=== PATIENT | male | born 1975 | race Caucasian/White ===

== ENCOUNTER 2024-06-04 18:16 | Emergency (ER) | payer BC, SELFPAY ==
[2024-06-04 18:41] VITALS: BP 133/83; PULSE 61; RESP 16; TEMP 36.8; O2SAT 97
--- NOTE | 2024-06-04 18:50 | ED_ITS ---
HPI - URI/Sore Throat General Chief Complaint: Upper Respiratory Infection Stated Complaint: Sore Throat, cough Time Seen by Provider: 06/04/24 18:50 Source: patient Mode of arrival: ambulatory Limitations: no limitations History of Present Illness HPI Narrative: 48-year-old male presents with complaint of nasal congestion, sinus pressure and cough for the past 2 weeks. Over the past 3-4 days worsening of symptoms. Afebrile. Not taking any [id number]-[id number] medications to treat symptoms other than zinc. Patient reports voice is worse. No chest pain or shortness of breath. All systems reviewed and negative except as noted above. Related Data Allergies Allergy/AdvReac Type Severity Reaction Status Date / Time No Known Allergies Allergy Verified 06/04/24 18:44 Review of Systems Review of Systems: CONSTITUTIONAL: Denies fever, chills, or sweats. Reports fatigue. EYES: Denies visual changes, redness, or discharge. ENT: Reports rhinorrhea, congestion, sinus pressure, postnasal drainage, sore throat, bilateral ear pressure CARDIOVASCULAR: Denies chest pain, palpitations, or edema. RESPIRATORY: Reports cough. Denies dyspnea. GASTROINTESTINAL: Denies abdominal pain, nausea, vomiting, or diarrhea. GENITOURINARY: Denies dysuria or hematuria. SKIN: Denies rash or itching. MUSCULOSKELETAL: Denies back pain, joint pain, or myalgia. NEUROLOGIC: Denies headache, numbness, or weakness. PSYCHIATRIC: Denies anxiety or depression. All other systems reviewed are negative, except as documented in HPI. PMFSH Comments At time of signature, agree with nursing past medical, surgical, social and family history. There is no relevant family history pertinent to the presenting complaint. Exam Narrative: GENERAL: This is a well-nourished, well-developed patient, in no apparent distress. HEAD: normocephalic, atraumatic. EYES: PERRL. Sclera clear/white. Vision is grossly intact. EARS: External ears normal, auditory canals clear and without drainage, TMs normal without perforation. Hearing grossly intact. NOSE: External nose normal with congestion purulent nasal drainage, erythema and swelling to bilateral nares, maxillary sinus tenderness bilaterally. THROAT: Mucous membranes moist, erythema postnasal drainage. No swelling or exudates. NECK: Neck supple, non-tender without lymphadenopathy, masses or thyromegaly. CARDIOVASCULAR: Regular rate and rhythm without murmurs, gallops, or rubs. RESPIRATORY: Clear to auscultation. Breath sounds equal bilaterally. No wheezes, rales, or rhonchi. SKIN: warm, Dry, intact with no suspicious lesions or rash, good texture and turgor. NEURO: awake, alert, and oriented to person, place and time. There were no obvious focal neurologic abnormalities. EXTREMITIES: No joint tenderness, effusion, or edema noted. Course Course Level of Care: Express Care Visit Vital Signs Vital signs: Vital Signs Temperature 36.8 C 06/04/24 18:41 Pulse Rate 61 06/04/24 18:41 Respiratory Rate 16 06/04/24 18:41 Blood Pressure 133/83 06/04/24 18:41 Pulse Oximetry 97 06/04/24 18:41 Temperature 36.8 C 06/04/24 18:41 Pulse Rate 61 06/04/24 18:41 Respiratory Rate 16 06/04/24 18:41 Blood Pressure 133/83 06/04/24 18:41 Pulse Oximetry 97 06/04/24 18:41 Reviewed MDM - URI/Sore Throat MDM Narrative Medical decision making narrative: Will treat patient for bacterial sinusitis due to duration of symptoms and exam findings. Patient is alert, nontoxic. Hemodynamically stable. Please be advised this is a medical document. It is intended for [id number] communication. It is written in medical language and may contain unfamiliar abbreviations or verbiage. Medical documents are intended to carry relevant information, facts as evident, and the clinical opinion of the practitioner at the time of the encounter. This report may have been done utilizing a voice recognition system. Attempts have been made to correct errors. However, there may be uncorrected grammatical, spelling, and recognition errors present. The file time of this note does not necessarily represent the time of service. Differential Diagnosis Differential diagnosis: Likely upper respiratory infection, sinusitis, viral infection, influenza and pharyngitis Discharge Plan Discharge Clinical Impression: Acute bacterial sinusitis, Acute laryngitis Patient Disposition: Home, Self-Care Condition: Stable Instructions: Antibiotic Form, Sinusitis (ED) Additional Instructions: Take medications as prescribed. Take Tylenol or ibuprofen every 6-8 hours as needed for pain and fever. Drink at least 64 oz water a day. Practice voice rest to improve laryngitis symptoms. Place cool mist humidifier in bedroom where you sleep. Follow-up with your primary care physician if symptoms are not improving. Patient Language: Brazilian Prescriptions: New benzonatate 200 mg capsule 200 mg PO TID PRN (Reason: cough) Qty: 20 0RF amoxicillin-pot clavulanate 875-125 mg tablet 1 tablet PO Q12H 7 Days Qty: 14 0RF cetirizine 10 mg capsule 10 mg PO DAILY Qty: 30 0RF methylprednisolone [Medrol (Raciel)] 4 mg tablets,dose pack See Rx Instructions PO .COMPLEX Qty: 21 0RF Rx Instructions: orally per package directions Follow-up/Referrals: UNKNOWN,DOCTOR [Primary Care Provider] - Time of Disposition: 18:58
== END 2024-06-04 19:05 | disposition home or self-care (01) ==
PROVIDERS: Emergency Provider Nurse Practitioner Family
DX: J01.90 Acute sinusitis, unspecified (principal); J04.0 Acute laryngitis
CPT/HCPCS: 99203; G0463